=== PATIENT | female | born 1950 | race Caucasian/White ===

== ENCOUNTER 2024-09-09 19:47 | Emergency (ER) | payer MEDICARE, SELFPAY ==
[2024-09-09 19:53] VITALS: BP 199/93; PULSE 85; RESP 22; TEMP 36.7; O2SAT 97; BMI 32.1
--- NOTE | 2024-09-09 19:58 | DI.CT.S_ITS ---
PROCEDURE: CT FACIAL BONES WO CON INDICATIONS: fall TECHNIQUE: Noncontrast 2.5 mm thick axial images acquired from the mandible through the frontal sinuses, with coronal and sagittal reformatting. For radiation dose reduction, the following was used: automated exposure control, adjustment of mA and/or kV according to patient size. COMPARISON: [facility], CT, CT HEAD/BRAIN WO CON, 09/09/2024, 20:17. FINDINGS: Image quality: Excellent. Bones and teeth: Orbital de león are intact. Sinus de león show no fracture or deformity. Slight irregularity at the base the right nasal bone. Priors. Visualized portions of the mandible demonstrate no fractures or subluxation. Zygomatic arches are intact. Pterygoid plates are intact. Visualized portions of the skull base and auditory canals are intact. Sinuses: Paranasal sinuses are aerated, without fluid levels. Mucous retention cyst versus polyp is present in the right maxillary sinus. Mastoid air cells are aerated. Soft tissues: No edema, masses, or fluid collections. No enlarged lymph nodes. No soft tissue lacerations or debris. Vascular: Visualized vascular structures appear normal in the absence of contrast. Bony vascular foramina and canals are intact. IMPRESSION: Irregularity at the base of the right nasal bone. Chronicity is somewhat indeterminate and recommend correlation to point tenderness given recent history of trauma. Dictated by: Carolina Garvin M.D. on 09/09/2024 at 20:43 Approved by: Carolina Garvin M.D. on 09/09/2024 at 20:44
[2024-09-09] MEDS: ACETAMINOPHEN 325 MG TABLET 975 MG PO (20:02)
--- NOTE | 2024-09-09 20:03 | DI.CT.S_ITS ---
PROCEDURE: CT HEAD/BRAIN WO CON INDICATIONS: fall TECHNIQUE: Noncontrast 4.5 mm thick angled axial sections acquired from the foramen magnum to the vertex, with coronal and sagittal reformats. For radiation dose reduction, the following was used: automated exposure control, adjustment of mA and/or kV according to patient size. COMPARISON: [facility], CT, CT FACIAL BONES WO CON, 09/09/2024, 20:17. FINDINGS: Image quality: Diagnostic. CSF spaces: Basal cisterns are patent. No extra-axial fluid collections. The ventricles are symmetric in size and shape. Brain: No intracranial bleeds or mass effect. There is cerebral volume loss, with resultant ventricular and sulcal prominence. There are periventricular and deep white matter chronic small vessel ischemic changes. There is intracranial internal carotid artery atherosclerosis. Skull and face: Calvarium is intact. Slight irregularity is present at the base the right nasal bone. No priors. Sinuses: Visualized sinuses demonstrate minimal scattered mucosal thickening. IMPRESSION: 1. No acute intracranial process. 2. Moderate atrophy and chronic microvascular ischemic changes. 3. Slight irregularity at the base the right nasal bone. Chronicity is indeterminate given lack of priors. Recommend correlation to port tenderness given history of. Dictated by: Carolina Garvin M.D. on 09/09/2024 at 20:41 Approved by: Carolina Garvin M.D. on 09/09/2024 at 20:43
--- NOTE | 2024-09-10 01:48 | ED.FALL ---
HPI - Fall General Chief Complaint: Fall Stated Complaint: GLF, poss broken nose, head wound Time Seen by Provider: 09/09/24 19:55 Source: patient Mode of arrival: Ambulatory Related Data Allergies Allergy/AdvReac Type Severity Reaction Status Date / Time Penicillins Allergy Severe Anaphylaxis Verified 09/09/24 19:55 tetracycline Allergy Severe Hives Verified 09/09/24 19:55 Patient History Social History Smoking Status: Former smoker Smoking Status: Former smoker Exam Initial Vital Signs Initial Vital Signs: Vital Signs Temperature 98.0 F 09/09/24 19:53 Pulse Rate 85 09/09/24 19:53 Respiratory Rate 22 09/09/24 19:53 Blood Pressure 199/93 H 09/09/24 19:53 Pulse Oximetry 97 09/09/24 19:53 Oxygen Delivery Method Room Air 09/09/24 19:53 Course Orders Ordered: ED Orders 09/09/24 19:58 CT facial bones wo con Stat 09/09/24 20:03 CT head/brain wo con Stat Discontinued Medications Acetaminophen (Acetaminophen 325 Mg Tablet) 975 mg PO NOW ONE Stop: 09/09/24 20:00 Last Admin: 09/09/24 20:02 Dose: 975 mg Documented By: LS Vital Signs Vital signs: Vital Signs - 8 hr 09/09/24 19:53 Temperature 98.0 F Pulse Rate 85 Respiratory Rate 22 Blood Pressure 199/93 H Pulse Oximetry 97 Oxygen Delivery Method Room Air Discharge Plan Departure Patient Disposition: Left Without Being Seen Clinical Impression: Patient left without being seen Stand Alone Forms: Patient Portal/API, Against Med. Advice ([place])
== END 2024-09-09 21:28 | disposition left against medical advice (07) ==
PROVIDERS: Emergency Provider Family Medicine
DX: S09.93XA Unspecified injury of face, initial encounter (principal); R04.0 Epistaxis; M25.562 Pain in left knee; W19.XXXA Unspecified fall, initial encounter
CPT/HCPCS: 70450; 70486; 99283